=== PATIENT | female | born 1970 | race Caucasian/White ===

== ENCOUNTER 2022-08-06 17:40 | Inpatient (IN) ==
[2022-08-06] MEDS ORDERED: CEFEPIME 2,000 MG/20 ML VIAL IV STA (18:09)
[2022-08-06] MEDS ORDERED: SODIUM CHLORIDE 0.9% 1000ML 500 ML IV SCH (18:15)
[2022-08-06] MEDS ORDERED: SODIUM CHLORIDE 0.9% 1000ML 1,000 ML IV SCH ×2 (18:15→23:34)
[2022-08-06] MEDS: SODIUM CHLORIDE 0.9% 1000ML 1,000 ML IV SCH ×2 (18:21→22:41)
[2022-08-06 19:04] LABS: Alanine Aminotransferase 32 U/L (7-52); Alkaline Phosphatase 60 U/L (34-104); Anion Gap 8 (3-11); Aspartate Aminotransferase 55 U/L (13-39); Bilirubin,Total 0.8 mg/dl (0.2-1.0); Blood Urea Nitrogen 9 mg/dl (6-23); Calcium 8.3 mg/dl (8.6-10.3); Carbon Dioxide 25 mmol/L (21-32); Chloride 102 mmol/L (98-107); Est GFR (Non-African American) 75.1 ml/min; Glucose 80 mg/dl (70-99(Fasting)); Magnesium 1.6 mg/dl (1.7-2.4); Potassium 4.1 mmol/L (3.5-5.1); Sodium 135 mmol/L (136-145); Total Protein 6.5 gm/dl (6.0-8.3); Troponin I High Sensitivity 7.6 pg/ml (0-14)
--- NOTE | 2022-08-06 19:04 | XRay Report ---
XR chest 1V portable HISTORY: 51 years-old Female Sepsis COMPARISON: 12/22/2013 TECHNIQUE: AP view chest FINDINGS: Cardiac silhouette is mildly enlarged. Pulmonary vascular congestion with interstitial coarsening. Il l-defined airspace opacities of the mid to lower lung zones, right greater than left. Bones appear gr ossly intact. IMPRESSION: Mild ill-defined airspace opacities of the mid to lower lung zones, right greater than le ft suspicious for pneumonia. ACT 112: Negative or not required by law. The above report was generated using voice recognition software. It may contain grammatical, syntax o r spelling errors. Electronically signed by: Donte Chandra M.D. 08/06/2022 7:02 PM
[2022-08-06 19:08] LABS: Hematocrit (blood only) 35.8 % (37.0-47.0); Hemoglobin 12.6 g/dl (12.0-16.0); Mean Corpuscular Hemoglobin 34.5 pg (25.0-34.0); Mean Corpuscular Hgb Conc 35.2 g/dL (32.0-36.0); Mean Corpuscular Volume 98.1 fL (80.0-100.0); Mean Platelet Volume 9.9 fL (9.4-12.4); Platelet Count 270 K/uL (130-400); RDW Coefficient of Variation 13.5 % (11.5-14.5); Red Blood Count 3.65 M/uL (4.20-5.40)
[2022-08-06 19:09] LABS: Basophils # (auto) 0.16 K/uL (0-0.2); Basophils % (auto) 1.1 %; Eosinophils # (auto) 0.06 K/uL (0-0.50); Eosinophils % (auto) 0.4 %; Immature Granulocytes # (auto) 0.25 K/uL (0.01-0.20); Immature Granulocytes % (auto) 1.6 %; Lymphocytes # (auto) 9.72 K/uL (1.2-3.4); Lymphocytes % (auto) 63.9 %; Monocytes # (auto) 0.65 K/uL (0.11-0.59); Monocytes % (auto) 4.3 %; Neutrophils # (auto) 4.36 K/uL (1.40-6.50); Neutrophils % (auto) 28.7 %
[2022-08-06 19:10] LABS: Partial Thromboplastin Ratio 0.9; Partial Thromboplastin Time 24.2 Seconds (21.0-31.0); Prothrombin Time 11.3 Seconds (9.0-12.0)
[2022-08-06] MEDS ORDERED: ALBUT/IPRATROP 3MG/0.5MG NEB 3 ML VIAL NEB STA (19:12)
[2022-08-06] MEDS ORDERED: ACETAMINOPHEN 500 MG TAB PO STA (19:12)
--- NOTE | 2022-08-06 19:12 | Emergency Department Note ---
Impression & Plan Bilateral interstitial pneumonia, Hypoxia ED Provider Note INFORMANT: Patient ED PROVIDER(S): Koko Tapia DO CHIEF COMPLAINT: Shortness of breath, cough PLAN: Disposition: Admission Outpatient prescription management: none Discussion with: I spoke with the hospitalist, who will see the patient for admission/observation and further evaluation and consultation. MEDICAL DECISION MAKING: This is a 51-year-old female who presents to the ED with a chief complaint of recent hospitalization in [place] from last Thursday to Thursday for syncope and pneumonia. The patient states that yesterday to and today she started developing pedal edema and worsening shortness of breath. She also reports a nonproductive cough. She was found to have oxygen saturations between 85 and 87% when she came through triage and in the back room. Temperature was 39.4. The patient has some diminished breath sounds bilaterally a chest x-ray shows bilateral lower lobe infiltrates. Heart regular rate and rhythm. No rashes. No obvious distress. CBC shows a white blood cell count of 15. She did recently finish some steroids. Hemoglobin did not show any concerning anemia. Electrolytes were unremarkable. Troponin was negative. Bio fire was negative. The patient was started on IV cefepime. She was given 2 and half liters of normal saline IV. A DuoNeb breathing treatment was administered and some Tylenol p.o. was administered. She will be seen by the hospitalist for further evaluation and care. Triage Nursing notes reviewed. Vital Signs: reviewed Prior /Outside records reviewed: [none] Differential diagnosis: Differential includes viral illness, influenza, streptococcal pharyngitis, meningitis, pneumonia, sinusitis, UTI, pyelonephritis, otitis media. Diagnostics, as interpreted by me: 12 lead ECG: Normal sinus rhythm rate of no ST elation. No PVCs. Normal QTc. Cardiac Monitoring ordered: Sinus rhythm in the 80s and 90s Medical decision rules: [none] Imaging studies: Chest x-ray: Bilateral lower lobe infiltrates Procedures: none. Critical care: none. HPI: See MDM above. PAST MEDICAL HISTORY: See Below PAST SURGICAL HISTORY: See Below SOCIAL HISTORY: See Below HOME MEDICATIONS:See Below ALLERGIES: See Below VITALS: See Below PHYSICAL EXAMINATION: See MDM for positive findings otherwise unremarkable. CONSTITUTIONAL/VITAL SIGNS: Reviewed GENERAL:done as appropriate INTEGUMENTARY: done as appropriate HEAD: done as appropriate EYES: done as appropriate RESPIRATORY: done as appropriate CARDIOVASCULAR:done as appropriate GI/ABDOMEN:done as appropriate EXTREMITIES: done as appropriate NEUROLOGICAL: done as appropriate PSYCHIATRIC:done as appropriate MUSCULOSKELETAL:done as appropriate TRIAGE NURSING DOCUMENTATION REVIEWED. Past Med/Surg History Medical History (Updated 08/06/22 @ 19:16 by Koko Tapia DO) Ovarian cyst Social History Smoking Status: Current every day smoker Feels Safe at Home: Yes Allergies Allergies Allergy/AdvReac Type Severity Reaction Status Date / Time No Known Allergies Allergy Unverified 09/06/18 11:54 Home Meds Home Medications Medication Instructions Recorded Confirmed albuterol sulfate 90 mcg/actuation 2 puff inhalation Q4 PRN Wheezing 09/06/18 08/06/22 aerosol inhaler (Ventolin HFA) chlorthalidone 25 mg tablet 25 mg PO QAM 09/06/18 08/06/22 escitalopram oxalate 10 mg tablet 10 mg PO QAM 09/06/18 08/06/22 losartan 100 mg tablet 100 mg PO QAM 09/06/18 08/06/22 omeprazole 20 mg capsule,delayed 20 mg PO AMPM 09/06/18 08/06/22 release albuterol sulfate 2.5 mg/3 mL 2.5 mg continuous nebulization Q4 08/06/22 08/06/22 (0.083 %) solution for nebulization PRN wheeze fexofenadine 180 mg tablet 180 mg PO DAILY PRN allergies 08/06/22 08/06/22 fluticasone fur. 100 mcg-umeclid 1 inh inhalation QAM 08/06/22 08/06/22 62.5 mcg-vilant 25 mcg inhalat.powder (Trelegy Ellipta) Results & Data (ED) Vital Signs Vital Signs - 24 hr 08/06/22 17:44 08/06/22 18:05 08/06/22 18:09 Temperature 39.4 C H Temperature Source Oral Pulse Rate 95 H 98 H Respiratory Rate 20 Respiratory Effort / Characteristics Non-Labored Spontaneous Respiratory Depth Normal Respiratory Pattern Regular Blood Pressure 136/82 Blood Pressure Mean 100 Pulse Oximetry 87 L Oxygen Delivery Method Room Air Nasal Cannula Sepsis Recent Fever Within 48 Hours No Sepsis New/Unexplained Change in Mental Status N/A Sepsis Action Taken by Nursing No Action Required 08/06/22 18:09 Temperature Temperature Source Pulse Rate Respiratory Rate 14 Respiratory Effort / Characteristics Respiratory Depth Respiratory Pattern Blood Pressure Blood Pressure Mean Pulse Oximetry Oxygen Delivery Method Sepsis Recent Fever Within 48 Hours Sepsis New/Unexplained Change in Mental Status Sepsis Action Taken by Nursing Laboratory Data 08/06/22 18:06 08/06/22 18:06 Lab Results 08/06/22 08/06/22 08/06/22 Range/Units 18:06 18:06 18:06 WBC 15.20 H (4.8-10.8) K/ul RBC 3.65 L (4.20-5.40) M/uL Hgb 12.6 (12.0-16.0) g/dl Hct 35.8 L (37.0-47.0) % MCV 98.1 (80.0-100.0) fL MCH 34.5 H (25.0-34.0) pg MCHC 35.2 (32.0-36.0) g/dL RDW Std Deviation 47.0 H (36.4-46.3) fL RDW Coeff of Puja 13.5 (11.5-14.5) % Plt Count 270 (130-400) K/uL MPV 9.9 (9.4-12.4) fL Immature Gran % (Auto) 1.6 % Neut % (Auto) 28.7 % Lymph % (Auto) 63.9 % [place] % (Auto) 4.3 % Eos % (Auto) 0.4 % Baso % (Auto) 1.1 % Neut # (Auto) 4.36 (1.40-6.50) K/uL Lymph # (Auto) 9.72 H (1.2-3.4) K/uL [place] # (Auto) 0.65 H (0.11-0.59) K/uL Eos # (Auto) 0.06 (0-0.50) K/uL Baso # (Auto) 0.16 (0-0.2) K/uL Immature Gran # (Auto) 0.25 H (0.01-0.20) K/uL PT (9.0-12.0) Seconds INR (0.9-1.1) APTT (21.0-31.0) Seconds PTT Ratio Sodium 135 L (136-145) mmol/L Potassium 4.1 (3.5-5.1) mmol/L Chloride 102 (98-107) mmol/L Carbon Dioxide 25 (21-32) mmol/L Anion Gap 8 (3-11) BUN 9 (6-23) mg/dl Creatinine 0.90 (0.6-1.2) mg/dl Est Cr Clr Drug Dosing 82.0 ml/min Est GFR ( Amer) 87.0 ml/min Est GFR (Non-Af Amer) 75.1 ml/min BUN/Creatinine Ratio 10.0 (10-20) Glucose 80 (70-99(Fasting)) mg/dl Lactate 1.9 (0.4-2.0) mmol/L Calcium 8.3 L (8.6-10.3) mg/dl Magnesium 1.6 L (1.7-2.4) mg/dl Total Bilirubin 0.8 (0.2-1.0) mg/dl Direct Bilirubin TNP AST 55 H (13-39) U/L ALT 32 (7-52) U/L Alkaline Phosphatase 60 (34-104) U/L Troponin I High Sens 7.6 (0-14) pg/ml Total Protein 6.5 (6.0-8.3) gm/dl Albumin 3.0 L (3.4-5.0) gm/dl Procalcitonin (0-0.5) ng/ml Adenovirus (PCR) (NotDetected) B. pertussis DNA (PCR) (NotDetected) B.parapertussis DNA PCR (NotDetected) C. pneumoniae DNA (PCR) (NotDetected) Coronavirus OC43 (PCR) (NotDetected) Coronavirus HKU1 (PCR) (NotDetected) Coronavirus 229E (PCR) (NotDetected) SARS-CoV-2 (PCR) (NotDetected) Coronavirus NL63 (PCR) (NotDetected) Human Metapneumovir PCR (NotDetected) Influenza Type A (PCR) (NotDetected) Influenza Type B (PCR) (NotDetected) M. pneumoniae (PCR) (NotDetected) Parainfluenza 1 (PCR) (NotDetected) Parainfluenza 2 (PCR) (NotDetected) Parainfluenza 3 (PCR) (NotDetected) Parainfluenza 4 (PCR) (NotDetected) RSV (PCR) (NotDetected) Entero/Rhino (PCR) (NotDetected) 08/06/22 08/06/22 08/06/22 Range/Units 18:06 18:06 18:06 WBC (4.8-10.8) K/ul RBC (4.20-5.40) M/uL Hgb (12.0-16.0) g/dl Hct (37.0-47.0) % MCV (80.0-100.0) fL MCH (25.0-34.0) pg MCHC (32.0-36.0) g/dL RDW Std Deviation (36.4-46.3) fL RDW Coeff of Puja (11.5-14.5) % Plt Count (130-400) K/uL MPV (9.4-12.4) fL Immature Gran % (Auto) % Neut % (Auto) % Lymph % (Auto) % [place] % (Auto) % Eos % (Auto) % Baso % (Auto) % Neut # (Auto) (1.40-6.50) K/uL Lymph # (Auto) (1.2-3.4) K/uL [place] # (Auto) (0.11-0.59) K/uL Eos # (Auto) (0-0.50) K/uL Baso # (Auto) (0-0.2) K/uL Immature Gran # (Auto) (0.01-0.20) K/uL PT 11.3 (9.0-12.0) Seconds INR 1.0 (0.9-1.1) APTT 24.2 (21.0-31.0) Seconds PTT Ratio 0.9 Sodium (136-145) mmol/L Potassium (3.5-5.1) mmol/L Chloride (98-107) mmol/L Carbon Dioxide (21-32) mmol/L Anion Gap (3-11) BUN (6-23) mg/dl Creatinine (0.6-1.2) mg/dl Est Cr Clr Drug Dosing ml/min Est GFR ( Amer) ml/min Est GFR (Non-Af Amer) ml/min BUN/Creatinine Ratio (10-20) Glucose (70-99(Fasting)) mg/dl Lactate (0.4-2.0) mmol/L Calcium (8.6-10.3) mg/dl Magnesium (1.7-2.4) mg/dl Total Bilirubin (0.2-1.0) mg/dl Direct Bilirubin 0.1 AST (13-39) U/L ALT (7-52) U/L Alkaline Phosphatase (34-104) U/L Troponin I High Sens (0-14) pg/ml Total Protein (6.0-8.3) gm/dl Albumin (3.4-5.0) gm/dl Procalcitonin 0.16 (0-0.5) ng/ml Adenovirus (PCR) (NotDetected) B. pertussis DNA (PCR) (NotDetected) B.parapertussis DNA PCR (NotDetected) C. pneumoniae DNA (PCR) (NotDetected) Coronavirus OC43 (PCR) (NotDetected) Coronavirus HKU1 (PCR) (NotDetected) Coronavirus 229E (PCR) (NotDetected) SARS-CoV-2 (PCR) (NotDetected) Coronavirus NL63 (PCR) (NotDetected) Human Metapneumovir PCR (NotDetected) Influenza Type A (PCR) (NotDetected) Influenza Type B (PCR) (NotDetected) M. pneumoniae (PCR) (NotDetected) Parainfluenza 1 (PCR) (NotDetected) Parainfluenza 2 (PCR) (NotDetected) Parainfluenza 3 (PCR) (NotDetected) Parainfluenza 4 (PCR) (NotDetected) RSV (PCR) (NotDetected) Entero/Rhino (PCR) (NotDetected) 08/06/22 Range/Units 18:34 WBC (4.8-10.8) K/ul RBC (4.20-5.40) M/uL Hgb (12.0-16.0) g/dl Hct (37.0-47.0) % MCV (80.0-100.0) fL MCH (25.0-34.0) pg MCHC (32.0-36.0) g/dL RDW Std Deviation (36.4-46.3) fL RDW Coeff of Puja (11.5-14.5) % Plt Count (130-400) K/uL MPV (9.4-12.4) fL Immature Gran % (Auto) % Neut % (Auto) % Lymph % (Auto) % [place] % (Auto) % Eos % (Auto) % Baso % (Auto) % Neut # (Auto) (1.40-6.50) K/uL Lymph # (Auto) (1.2-3.4) K/uL [place] # (Auto) (0.11-0.59) K/uL Eos # (Auto) (0-0.50) K/uL Baso # (Auto) (0-0.2) K/uL Immature Gran # (Auto) (0.01-0.20) K/uL PT (9.0-12.0) Seconds INR (0.9-1.1) APTT (21.0-31.0) Seconds PTT Ratio Sodium (136-145) mmol/L Potassium (3.5-5.1) mmol/L Chloride (98-107) mmol/L Carbon Dioxide (21-32) mmol/L Anion Gap (3-11) BUN (6-23) mg/dl Creatinine (0.6-1.2) mg/dl Est Cr Clr Drug Dosing ml/min Est GFR ( Amer) ml/min Est GFR (Non-Af Amer) ml/min BUN/Creatinine Ratio (10-20) Glucose (70-99(Fasting)) mg/dl Lactate (0.4-2.0) mmol/L Calcium (8.6-10.3) mg/dl Magnesium (1.7-2.4) mg/dl Total Bilirubin (0.2-1.0) mg/dl Direct Bilirubin AST (13-39) U/L ALT (7-52) U/L Alkaline Phosphatase (34-104) U/L Troponin I High Sens (0-14) pg/ml Total Protein (6.0-8.3) gm/dl Albumin (3.4-5.0) gm/dl Procalcitonin (0-0.5) ng/ml Adenovirus (PCR) Not Detected (NotDetected) B. pertussis DNA (PCR) Not Detected (NotDetected) B.parapertussis DNA PCR Not Detected (NotDetected) C. pneumoniae DNA (PCR) Not Detected (NotDetected) Coronavirus OC43 (PCR) Not Detected (NotDetected) Coronavirus HKU1 (PCR) Not Detected (NotDetected) Coronavirus 229E (PCR) Not Detected (NotDetected) SARS-CoV-2 (PCR) Not Detected (NotDetected) Coronavirus NL63 (PCR) Not Detected (NotDetected) Human Metapneumovir PCR Not Detected (NotDetected) Influenza Type A (PCR) Not Detected (NotDetected) Influenza Type B (PCR) Not Detected (NotDetected) M. pneumoniae (PCR) Not Detected (NotDetected) Parainfluenza 1 (PCR) Not Detected (NotDetected) Parainfluenza 2 (PCR) Not Detected (NotDetected) Parainfluenza 3 (PCR) Not Detected (NotDetected) Parainfluenza 4 (PCR) Not Detected (NotDetected) RSV (PCR) Not Detected (NotDetected) Entero/Rhino (PCR) Not Detected (NotDetected) Administered Medications Sodium Chloride (Nss 1000ml) 1,000 mls @ 999 mls/hr IV .Q1H1M EDENILSON Stop: 08/06/22 20:15 Last Admin: 08/06/22 18:21 Dose: 999 mls/hr Documented By: ARS Discontinued Medications Acetaminophen (Acetaminophen 500 Mg Tab) 500 mg PO NOW STA Stop: 08/06/22 19:13 Last Admin: 08/06/22 19:30 Dose: 500 mg Documented By: ARS Albuterol (Albut/Ipratrop 3mg/0.5mg Neb 3 Ml Vial) 3 ml NEB NOW STA; Protocol Stop: 08/06/22 19:13 Last Admin: 08/06/22 19:29 Dose: 3 ml Documented By: ARS Cefepime HCl (Maxipime) 2,000 mg in 20 mls @ 5 mls/min IV NOW STA; Protocol Stop: 08/06/22 18:12 Last Admin: 08/06/22 19:00 Dose: 5 mls/min Documented By: JULIA Sodium Chloride (Nss 1000ml) 1,000 mls @ 999 mls/hr IV .Q1H1M EDENILSON Stop: 08/06/22 19:15 Last Admin: 08/06/22 18:21 Dose: 999 mls/hr Documented By: JULIA Sodium Chloride (Nss 1000ml) 500 mls @ 999 mls/hr IV .Q31M EDENILSON Stop: 08/06/22 18:45 Last Admin: 08/06/22 18:21 Dose: 999 mls/hr Documented By: JULIA Ioversol (Optiray 320 500ml) 109 ml IV ONCE ONE Stop: 08/06/22 19:51 Last Admin: 08/06/22 19:50 Dose: 109 ml Documented By: NO Imaging Data Radiologist's Impression: Chest X-Ray 08/06/22 18:09 XR chest 1V portable HISTORY: 51 years-old Female Sepsis COMPARISON: 12/22/2013 TECHNIQUE: AP view chest FINDINGS: Cardiac silhouette is mildly enlarged. Pulmonary vascular congestion with interstitial coarsening. Ill-defined airspace opacities of the mid to lower lung zones, right greater than left. Bones appear grossly intact. IMPRESSION: Mild ill-defined airspace opacities of the mid to lower lung zones, right greater than left suspicious for pneumonia. ACT 112: Negative or not required by law. The above report was generated using voice recognition software. It may contain grammatical, syntax or spelling errors. Electronically signed by: Donte Chandra M.D. 08/06/2022 7:02 PM Discharge Plan Visit Data Chief Complaint: Hypotension Stated Complaint: EPISODE OF LOW BLOOD PRESSURE ED Provider: Koko Tapia Discharge Problem: Bilateral interstitial pneumonia, Hypoxia Forms Stand Alone Forms: My [facility] Prescriptions Prescriptions: No Action chlorthalidone 25 mg tablet 25 mg PO QAM omeprazole 20 mg capsule,delayed release(DR/EC) 20 mg PO AMPM albuterol sulfate [Ventolin HFA] 90 mcg/actuation HFA aerosol inhaler 2 puff inhalation Q4 PRN (Reason: Wheezing) losartan 100 mg tablet 100 mg PO QAM escitalopram oxalate 10 mg tablet 10 mg PO QAM fexofenadine 180 mg Tablet 180 mg PO DAILY PRN (Reason: allergies) Trelegy Ellipta 100-62.5-25 mcg blister with device 1 inh INHALATION QAM albuterol sulfate 2.5 mg /3 mL (0.083 %) solution for nebulization 2.5 mg continuous nebulization Q4 PRN (Reason: wheeze) Referrals Referrals: Lalo Salazar MD [Primary Care Provider] -
[2022-08-06 19:40] LABS: Adenovirus PCR Not Detected (NotDetected); Bordetella parapertussis PCR Not Detected (NotDetected); Bordetella pertussis PCR Not Detected (NotDetected); Chlamydia pneumoniae PCR Not Detected (NotDetected); Coronavirus 229E PCR Not Detected (NotDetected); Coronavirus CoV-2 (COVID19)PCR Not Detected (NotDetected); Coronavirus HKU1 PCR Not Detected (NotDetected); Coronavirus NL63 PCR Not Detected (NotDetected); Coronavirus OC43PCR Not Detected (NotDetected); Human Metapneumovirus PCR Not Detected (NotDetected); Influenza A PCR Not Detected (NotDetected); Influenza B PCR Not Detected (NotDetected); Mycoplasma pneumoniae PCR Not Detected (NotDetected); Parainfluenza Virus 1 PCR Not Detected (NotDetected); Parainfluenza Virus 2 PCR Not Detected (NotDetected); Parainfluenza Virus 3 PCR Not Detected (NotDetected); Parainfluenza Virus 4 PCR Not Detected (NotDetected); Respiratory Syncytial VirusPCR Not Detected (NotDetected); Rhinovirus/Enterovirus PCR Not Detected (NotDetected)
[2022-08-06] MEDS ORDERED: OPTIRAY 320 500ml IV ONE (19:50)
--- NOTE | 2022-08-06 20:06 | CT Scan Report ---
Exam(s): CTA CHEST EXAM: CT Angiography Chest With Intravenous Contrast CLINICAL HISTORY: Reason for exam: sob, r/o pe. TECHNIQUE: Axial computed tomographic angiography images of the chest with intravenous contrast. CTDI is 38 mGy and DLP is 923.37 mGy-cm. Automated exposure control was utilized for the study. A dose lowering technique was utilized adhering to the principles of ALARA. MIP reconstructed images were created and reviewed. COMPARISON: No relevant prior studies available. FINDINGS: Pulmonary arteries: Unremarkable. No pulmonary embolus. Aorta: No acute findings. No thoracic aortic aneurysm. Lungs: See below. Pleural space: Small right and tiny left pleural effusions with associated compressive atelectasis of both lower lobes. No pneumothorax. Heart: Unremarkable. No cardiomegaly. No significant pericardial effusion. No evidence of RV dysfunction. Mediastinum: 2.2 x 2.8 cm right hilar lymph node with diffuse patchy groundglass opacity scattered throughout the lungs bilaterally with a particular upper lobe predominance. Bones/joints: No acute fracture. No dislocation. Soft tissues: Unremarkable. Lymph nodes: See above. Liver: Hepatomegaly. IMPRESSION: 1. No pulmonary embolus 2. Diffuse groundglass opacities within the lungs bilaterally. Findings are consistent with multifocal pneumonia 3. Right hilar lymphadenopathy likely reactive in nature 4. Hepatomegaly Electronically signed by: Elian Higgins MD 08/06/22 20:05 PM
[2022-08-06] MEDS ORDERED: FEXOFENADINE HCL 180 MG TAB PO PRN (23:34)
[2022-08-06] MEDS ORDERED: LEVALBUTEROL 1.25 MG/3 ML NEB NEB PRN (23:34)
[2022-08-06] MEDS ORDERED: POLYETHYLENE (MIRALAX) 17 GM PACK PO PRN (23:34)
[2022-08-06] MEDS ORDERED: methylPREDNISolone 125 MG/2 ML VIAL IV STA (23:34)
[2022-08-06] MEDS ORDERED: ALBUTEROL HFA 8 GM INHALER INH PRN (23:34)
[2022-08-06] MEDS ORDERED: methylPREDNISolone 60 MG in SYRINGE 0 ML IV STA (23:41)
[2022-08-07] MEDS: LEVALBUTEROL 1.25 MG/3 ML NEB NEB SCH ×4 (00:04→19:19)
[2022-08-07] MEDS: IPRATROPIUM BROMIDE NEB SOLN 0.02% 2.5 ML VIAL INH SCH ×4 (00:04→19:19)
--- NOTE | 2022-08-07 00:09 | History and Physical Report ---
DATE OF ADMISSION: 08/06/2022. CHIEF COMPLAINT: Shortness of breath, cough. HISTORY OF PRESENT ILLNESS: This is a 51-year-old female with past medical history significant for asthma, hypertension, GERD, anxiety and depression, who presents with shortness of breath and cough. The patient says last Thursday she was feeling not good and she was sick for a couple of weeks prior to that and last Thursday at work she checked her blood pressure, systolic blood pressure was in 60s, so she came home to go to hospital. At home, she passed out for a minute. Her brother and her friend helped her and took her to the [facility] where they found she has pneumonia and she was treated with antibiotics and steroids and says that she was discharged last Thursday on a course of azithromycin and steroids. She finished her steroids yesterday, today again she was feeling the shortness of breath and the cough was not getting better and also since last Thursday she developed lower extremity edema and today and checked her blood pressure, it was again low and that is the reason she came to the hospital here. Currently, alert and oriented, has some headache from coughing, also felt dizziness. Denies any blurred visions, no earache, no runny nose, no sore throat. Does not bring any phlegm. Has some chest discomfort. She thinks this is very mild and is more with coughing.She was 87% on room air and requiring oxygen in the ER.Says when she coughs a lot, she feels nauseous. She did not eat much for the last 2 days. No abdominal pain. She has some diarrhea. Her stools are reddish in color, but it seems it is the color of the antibiotic. She has got normal bladder movements. No hematuria, no burning micturition. ALLERGIES: No known drug allergies. PAST MEDICAL HISTORY: As mentioned above. PAST SURGICAL HISTORY: Breast biopsy, left; ; EGDs. MEDICATIONS: The patient is on albuterol nebulization q. 4 hours p.r.n., albuterol 2 puffs q. 4 hours p.r.n., chlorthalidone 25 mg p.o. a.m., Lexapro 10 mg p.o. a.m., fexofenadine 180 mg p.o. daily p.r.n., Trelegy Ellipta 1 inhalation daily q.a.m., losartan 100 mg p.o. daily, omeprazole 20 mg p.o. b.i.d. FAMILY HISTORY: Significant for maternal grandmother had breast cancer; father has heart disorder, lung disorder. SOCIAL HISTORY: Smokes six cigarettes every day. Alcohol occasionally. No drug use. REVIEW OF SYSTEMS: As per HPI. Rest of the review of systems is negative. PHYSICAL EXAMINATION: GENERAL: The patient is obese, not in acute distress. VITAL SIGNS: Temperature T-max 39.4, pulse 98, respiratory rate 14, blood pressure 136/82, oxygen 87% on room air, 92% on 4 liters. HEENT: Pupils equal, round, and reactive to light. Oral mucosa moist. NECK: No JVD, no neck masses. CARDIOVASCULAR: S1 and S2 heard, regular rate and rhythm. No murmur, no gallop. RESPIRATORY SYSTEM: Normal AP diameter. No accessory muscle use. Mild bilateral rhonchi. No wheezing. ABDOMEN: Soft, bowel sounds present, nontender, no distention. CENTRAL NERVOUS SYSTEM: Alert and oriented. Speech is clear. No facial droop. Obeys simple commands. Moves extremities. EXTREMITIES: Lower extremity pedal edema present, no erythema seen. LABORATORY DATA: WBC 15.2, hemoglobin 12.6, hematocrit 35.8, platelets 270. PT 11.3, INR 1, APTT 24.2. Sodium 135, potassium 4.1, chloride 102, bicarbonate 25, BUN 9, creatinine 0.9, serum glucose 80, lactate 1.9, calcium 8.3, magnesium 1.6, total bilirubin 0.8, direct bilirubin 0.1, AST 55, ALT 32, alkaline phosphatase 60. Troponin I high sensitivity 7.6. Procalcitonin 0.16. Respiratory BioFire negative. IMAGING DATA: Chest x-ray: Mild ill-defined airspace opacities in the mid to lower lung zones, right greater than left, suspicious for pneumonia. CTA chest, no pulmonary embolus, diffuse ground-glass opacities within the lungs bilaterally. Findings are consistent with multifocal pneumonia, right hilar lymphadenopathy, likely reactive in nature, hepatomegaly. EKG: Normal sinus rhythm, rate of 91, nonspecific T-wave abnormalities. No acute ST changes seen. ASSESSMENT AND PLAN: This is a 51-year-old female who presents with shortness of breath, hypoxia, recently diagnosed pneumonia. 1. Shortness of breath, hypoxia: Most likely secondary to multifocal pneumonia showing on ct scan, respiratory BioFire negative. Recently in [facility] last Thursday and was discharged on Thursday. On discharge, she was placed on azithromycin. Currently she has leukocytosis, mostly from recent steroid use. ER gave cefepime.Will empirically place on Zosyn and doxycycline for now. Follow the cultures. Follow the response. Closely monitor in the tele floor. Her blood pressure seems okay now. 2. Possible asthma exacerbation from above: Placed on nebs around the clock and p.r.n. and IV Solu-Medrol. Antibiotics as above.Closely monitor. 3. Lower extremity edema: Most likely from recent admission, possibly from fluids and possibly from steroids. Will check lower extremity Doppler and also follow echocardiogram. Currently also getting fluids. Will monitor. 4. Chest discomfort: This is mostly from the coughing, but initial troponin is negative. Follow serial enzymes and echocardiogram. If any concern, will consult cardiology. Monitor in the tele floor and follow echocardiogram. 5. History of hypertension: Will hold the chlorthalidone and losartan for now. Restart when the blood pressure gets elevated. 6. History of depression and anxiety: Continue her Lexapro. 7. Tobacco abuse: Smokes six cigarettes daily. Needs counseling. 8. Gastroesophageal reflux disease: Continue omeprazole. 9. Deep venous thrombosis prophylaxis: Lovenox. DISPOSITION: Closely monitor in the tele floor. Level 1 full code. Expect to discharge home and follow with family doctor. Job ID: [id number] [facility]
[2022-08-07] MEDS: MAGNESIUM SULFATE / D5W 1 GM/100 ML BAG IV SCH ×2 (00:19→02:01)
[2022-08-07] MEDS: PIPERACILLIN/TAZOBACTAM 4.5 GM in DEXTROSE 5% 100 ML IV SCH ×4 (00:20→23:40)
[2022-08-07] MEDS: DOXYCYCLINE HYCLATE 100 MG in DEXTROSE 5% 100 ML IV SCH ×3 (00:20→23:40)
[2022-08-07] MEDS: PANTOprazole 40 MG TAB PO SCH ×3 (00:21→19:59)
[2022-08-07] MEDS ORDERED: XOPENEX/ATROVENT 1.25mg/0.5MG NEB COMBO NEB SCH (01:00)
[2022-08-07 03:53] LABS: Appearance Urine Clear (Clear); Bacteria Urine Automated Negative (Negative); Bilirubin Urine Negative (Negative); Blood Urine Negative (Negative); Color Urine Yellow; Glucose Urine UA Negative (Negative); Ketones Urine Negative (Negative); Leukocyte Esterase Urine Negative (Negative); Nitrite Urine Negative (Negative); Protein Urine 1+ (Negative); RBC Urine Automated 0-4 /hpf (0-4); Specific Gravity Urine 1.035 (1.000-1.030); Urobilinogen Urine Negative (Negative); pH Urine 5.5 (4.5-7.5)
[2022-08-07 06:26] LABS: Hematocrit (blood only) 30.4 % (37.0-47.0); Hemoglobin 10.6 g/dl (12.0-16.0); Mean Corpuscular Hemoglobin 34.2 pg (25.0-34.0); Mean Corpuscular Hgb Conc 34.9 g/dL (32.0-36.0); Mean Corpuscular Volume 98.1 fL (80.0-100.0); Mean Platelet Volume 9.6 fL (9.4-12.4); Platelet Count 263 K/uL (130-400); RDW Coefficient of Variation 13.9 % (11.5-14.5); RDW Standard Deviation 47.8 fL (36.4-46.3); White Blood Count 9.06 K/ul (4.8-10.8)
--- NOTE | 2022-08-07 06:42 | Ultrasound Report ---
BILATERAL LOWER EXTREMITY VENOUS DOPPLER CLINICAL HISTORY: b/l lower ext edema. dvt? COMPARISON STUDY: No previous studies for comparison. TECHNIQUE: Sonography of the deep venous system of the bilateral lower extremities was performed. Co mpression and augmentation were evaluated. FINDINGS: The bilateral common femoral, superficial femoral and popliteal veins were compressible. A ugmentation was normal. Flow was shown within the deep calf vessels. IMPRESSION: No evidence of deep venous thrombus within the bilateral lower extremities. ACT 112: Negative or not required by law. Electronically signed by: Leopoldo Eugene M.D. 08/07/2022 6:41 AM
[2022-08-07 07:11] LABS: Lyme Ab IgG w/WB Rflx Negative (Negative)
[2022-08-07 07:14] LABS: Lyme Ab IgM w/WB Rflx Positive (Negative)
[2022-08-07 07:23] LABS: ALC (manual) 2.45 K/uL (1.2-3.4); ANC (manual) 5.98 K/uL (1.4-6.5); Calcium 7.4 mg/dl (8.6-10.3); Lymphocytes # (manual) 0.36 K/uL (1.2-3.4); Lymphocytes % (manual) 4 %; Monocytes # (manual) 0.63 K/uL (0.11-0.59); Monocytes % (manual) 7 %; Neutrophils # (manual) 5.98 K/uL (1.40-6.50); Neutrophils % (manual) 66 %; Reactive Lymphocytes # (manual) 2.08 K/uL; Reactive Lymphocytes % (manual) 23 %
[2022-08-07 07:28] LABS: BUN Creatinine Ratio 12.5 (10-20); Creatinine Clr Calc Pharmacy 93.4 ml/min; Est GFR (African American) 100.3 ml/min; Est GFR (Non-African American) 86.6 ml/min
[2022-08-07] MEDS: FLUTICASONE FUROATE 100MCG 14 PUFFS/INHALER INH SCH (08:01)
[2022-08-07] MEDS: methylPREDNISolone 40 MG in SYRINGE 0 ML IV SCH ×2 (08:01→19:59)
[2022-08-07] MEDS: UMECLIDINIUM/VILANTEROL 62.5/25MCG 7 PUFFS/INHALER INH SCH (08:01)
[2022-08-07] MEDS: ENOXAPARIN INJ 40 MG/0.4 ML SYR SQ SCH (08:02)
[2022-08-07] MEDS: ESCITALOPRAM OXALATE 10 MG TAB PO SCH (08:02)
[2022-08-07] MEDS ORDERED: NON-FORMULARY MEDICATION (Fluticasone-Umeclidin-Vilanter [Trelegy Ellipta] 100-62.5-25 mcg INH SCH (09:00)
[2022-08-07] MEDS ORDERED: BENZONATATE 100 MG CAPSULE PO PRN (10:46)
[2022-08-07] MEDS: guaiFENesin 600 MG TABCR PO SCH ×2 (11:19→20:02)
--- NOTE | 2022-08-07 11:49 | Hospitalist Progress Note ---
Date of Service August 07, 2022 Assessment & Plan (1) Multifocal pneumonia: (2) Acute respiratory failure with hypoxia: Plan: Patient reported symptoms started after visiting grandchild mid June with cough, SOB, dizziness, occasional low BP, subjective fever and chills Was recently admitted at [facility] and managed for pneumonia and discharged on azithromycin and steroid. However, presented here due to worsening symptoms. CTA chest did not show PE but noted multifocal pneumonia, hepatomegaly. Had leukocytosis of 15 on presentation Patient did meet SIRS criteria with leukocytosis and RR >20. Hence Sepsis due to multifocal pneumonia Lyme test is + for IgM Ab. others pending Blood cultures in lab Will continue zosyn and doxycycline for now Reported leg edema was in the past few days from recent stay at [place]. May be related to IVF during that hospital stay TTE noted EF 65-70%, mod conc LVH, no significant valvular disease, normal RV size and function, normal atrial Stop IVF for now since patient is tolerating po well and monitor Antitussives ordered Wean oxygen as tolerated. If no clinical improvement, consult Pulm Continue nebs and steroid for today (3) Hypertension: Plan: SBP running 90-100s. Hold all antihypertensives for now Continue home lexapro Continue omeprazole DVT ppx- lovenox I spent a total of 55 minutes coordinating, documenting and providing care for this patient excluding time spent in performance of separately billed services Admission and Anticipated Discharge Date Admission Date: August 06, 2022 Subjective Patient seen and examined Reports persistent cough, mostly dry and shortness of breath Reported cough is associated with mid back pain which is mildly improved No dizziness at this time No fever today. No chills, nausea, vomiting, abd pain, diarrhea, dysuria, freq, urgency Reported some leg swelling. Physical Exam Constitutional: + well hydrated and + obese; no acute distress Eyes: PERRL, conjunctivae normal, anicteric sclerae ENMT: external ear and nose normal, oropharynx normal Respiratory: +cough. Coarse breath sounds with scattered crackles Cardiovascular: Rate/Rhythm: regular rate and regular rhythm S1 S2 Gastrointestinal (Abdomen): normal bowel sounds, soft, nontender, no hepatosplenomegaly Musculoskeletal: Trace pedal edema Neurologic: PERRL, EOMI, accommodation nl, no face palsy, no dysarthria Psychiatric: A+Ox3, euthymic affect Results & Data Results & Data Vital Signs (Past 12 Hours) Vital Signs Temp Pulse Pulse Pulse Resp BP BP 08/07/22 11:13 36.6 C 80 20 99/69 L 08/07/22 08:00 08/07/22 06:24 79 08/07/22 07:53 36.8 C 69 20 91/54 L 08/07/22 07:11 65 16 08/07/22 03:57 37.0 C 70 18 95/58 L 08/07/22 00:00 88 08/07/22 00:04 73 18 08/06/22 23:48 08/06/22 23:48 36.6 C 85 22 111/66 Pulse Ox O2 Del Method O2 Flow Rate 08/07/22 11:13 97 Nasal Cannula 4 08/07/22 08:00 Nasal Cannula 4 08/07/22 06:24 08/07/22 07:53 92 Nasal Cannula 4 08/07/22 07:11 95 Nasal Cannula 2 08/07/22 03:57 91 Nasal Cannula 08/07/22 00:00 08/07/22 00:04 97 Nasal Cannula 4 08/06/22 23:48 Nasal Cannula 4 08/06/22 23:48 93 Nasal Cannula 4 Laboratory Results Abnormal lab results 08/06/22 08/06/22 08/07/22 Range/Units 18:06 18:06 03:43 WBC 15.20 H (4.8-10.8) K/ul RBC 3.65 L (4.20-5.40) M/uL Hgb (12.0-16.0) g/dl Hct 35.8 L (37.0-47.0) % MCH 34.5 H (25.0-34.0) pg RDW Std Deviation 47.0 H (36.4-46.3) fL Lymph # (Auto) 9.72 H (1.2-3.4) K/uL Wood # (Auto) 0.65 H (0.11-0.59) K/uL Immature Gran # (Auto) 0.25 H (0.01-0.20) K/uL Lymphocytes # (Manual) (1.2-3.4) K/uL Monocytes # (Manual) (0.11-0.59) K/uL Sodium 135 L (136-145) mmol/L Glucose (70-99(Fasting)) mg/dl Calcium 8.3 L (8.6-10.3) mg/dl Magnesium 1.6 L (1.7-2.4) mg/dl AST 55 H (13-39) U/L Albumin 3.0 L (3.4-5.0) gm/dl Ur Specific Moffat 1.035 H (1.000-1.030) Urine Protein 1+ H (Negative) U Epithel Cells (Auto) 10-20 H (0-5) /lpf Lyme Disease IgM Ab (Negative) 08/07/22 08/07/22 08/07/22 Range/Units 05:32 05:32 05:32 WBC (4.8-10.8) K/ul RBC 3.10 L (4.20-5.40) M/uL Hgb 10.6 L (12.0-16.0) g/dl Hct 30.4 L (37.0-47.0) % MCH 34.2 H (25.0-34.0) pg RDW Std Deviation 47.8 H (36.4-46.3) fL Lymph # (Auto) (1.2-3.4) K/uL Wood # (Auto) (0.11-0.59) K/uL Immature Gran # (Auto) (0.01-0.20) K/uL Lymphocytes # (Manual) 0.36 L (1.2-3.4) K/uL Monocytes # (Manual) 0.63 H (0.11-0.59) K/uL Sodium (136-145) mmol/L Glucose 127 H (70-99(Fasting)) mg/dl Calcium 7.4 L (8.6-10.3) mg/dl Magnesium (1.7-2.4) mg/dl AST (13-39) U/L Albumin (3.4-5.0) gm/dl Ur Specific Moffat (1.000-1.030) Urine Protein (Negative) U Epithel Cells (Auto) (0-5) /lpf Lyme Disease IgM Ab Positive A (Negative)
[2022-08-08] MEDS: MELATONIN 3 MG TAB PO PRN (00:41)
[2022-08-08] MEDS: IPRATROPIUM BROMIDE NEB SOLN 0.02% 2.5 ML VIAL INH SCH ×3 (01:35→12:51)
[2022-08-08] MEDS: LEVALBUTEROL 1.25 MG/3 ML NEB NEB SCH ×3 (01:35→12:51)
[2022-08-08] MEDS: guaiFENesin 600 MG TABCR PO SCH ×2 (08:02→20:05)
[2022-08-08] MEDS: UMECLIDINIUM/VILANTEROL 62.5/25MCG 7 PUFFS/INHALER INH SCH (08:02)
[2022-08-08] MEDS: ENOXAPARIN INJ 40 MG/0.4 ML SYR SQ SCH (08:02)
[2022-08-08] MEDS: FLUTICASONE FUROATE 100MCG 14 PUFFS/INHALER INH SCH (08:02)
[2022-08-08] MEDS: methylPREDNISolone 40 MG in SYRINGE 0 ML IV SCH (08:02)
[2022-08-08] MEDS: PANTOprazole 40 MG TAB PO SCH ×2 (08:02→20:05)
[2022-08-08] MEDS: ESCITALOPRAM OXALATE 10 MG TAB PO SCH (08:02)
[2022-08-08 08:31] LABS: Hematocrit (blood only) 31.2 % (37.0-47.0); Hemoglobin 10.9 g/dl (12.0-16.0); Mean Corpuscular Hemoglobin 33.2 pg (25.0-34.0); Mean Corpuscular Hgb Conc 34.9 g/dL (32.0-36.0); Mean Corpuscular Volume 95.1 fL (80.0-100.0); Mean Platelet Volume 9.6 fL (9.4-12.4); Platelet Count 243 K/uL (130-400); RDW Coefficient of Variation 13.3 % (11.5-14.5); RDW Standard Deviation 45.1 fL (36.4-46.3); Red Blood Count 3.28 M/uL (4.20-5.40); White Blood Count 8.41 K/ul (4.8-10.8)
[2022-08-08] MEDS: PIPERACILLIN/TAZOBACTAM 4.5 GM in DEXTROSE 5% 100 ML IV SCH ×2 (08:56→16:10)
[2022-08-08 09:03] LABS: Albumin Globulin Ratio 0.8 (0.9-2); Albumin Level 2.7 gm/dl (3.4-5.0); BUN Creatinine Ratio 17.7 (10-20); Bilirubin,Total 0.5 mg/dl (0.2-1.0); Calcium 8.3 mg/dl (8.6-10.3); Est GFR (African American) 122.7 ml/min; Est GFR (Non-African American) 105.9 ml/min; Globulin 3.2 gm/dl (2.5-4.0); Magnesium 1.9 mg/dl (1.7-2.4); Potassium 3.7 mmol/L (3.5-5.1); Total Protein 5.9 gm/dl (6.0-8.3)
[2022-08-08] MEDS: DOXYCYCLINE HYCLATE 100 MG in DEXTROSE 5% 100 ML IV SCH (11:38)
--- NOTE | 2022-08-08 12:23 | Hospitalist Progress Note ---
Date of Service August 08, 2022 Assessment & Plan (1) Multifocal pneumonia: (2) Acute respiratory failure with hypoxia: Plan: Patient reported symptoms started after visiting grandchild mid June with cough, SOB, dizziness, occasional low BP, subjective fever and chills Was recently admitted at [facility] and managed for pneumonia and discharged on azithromycin and steroid. However, presented here due to worsening symptoms. CTA chest did not show PE but noted multifocal pneumonia, hepatomegaly. Had leukocytosis of 15 on presentation Patient did meet SIRS criteria with leukocytosis and RR >20. Hence Sepsis due to multifocal pneumonia Lyme test is + for IgM Ab. others pending Blood cultures negative so far Will continue zosyn and doxycycline for now Reported leg edema was in the past few days from recent stay at [place]. May be related to IVF during that hospital stay TTE noted EF 65-70%, mod conc LVH, no significant valvular disease, normal RV size and function, normal atrial Leg edema has resolved Continue antitussives Wean oxygen as tolerated. Will stop steroid for now (3) Hypertension: Plan: SBP running 90-100s. Hold all antihypertensives for now Continue home lexapro Continue omeprazole DVT ppx- lovenox I spent a total of 50 minutes coordinating, documenting and providing care for this patient excluding time spent in performance of separately billed services Admission and Anticipated Discharge Date Admission Date: August 06, 2022 Subjective Patient seen and examined Reports significant improvement Reports cough and shortness of breath are improving Denied dizziness today No fever today. Denied chills, nausea, vomiting, abd pain, diarrhea, dysuria, freq, urgency Leg swelling is resolved Physical Exam Constitutional: + well hydrated and + obese; no acute distress Eyes: PERRL, conjunctivae normal, anicteric sclerae ENMT: external ear and nose normal, oropharynx normal Respiratory: Not in resp distress. On nasal cannula Coarse breath sounds with scattered crackles Cardiovascular: Rate/Rhythm: regular rate and regular rhythm S1 S2 Gastrointestinal (Abdomen): normal bowel sounds, soft, nontender, no hepatosplenomegaly Musculoskeletal: No pedal edema Neurologic: PERRL, EOMI, accommodation nl, no face palsy, no dysarthria Psychiatric: A+Ox3, euthymic affect Results & Data Results & Data Vital Signs (Past 12 Hours) Vital Signs Temp Pulse Pulse Resp BP BP Pulse Ox 08/08/22 10:52 36.8 C 74 20 102/59 L 94 08/08/22 08:00 08/08/22 08:03 36.7 C 94 H 20 126/75 93 08/08/22 06:52 86 16 97 08/08/22 04:00 36.4 C L 63 18 103/66 96 O2 Del Method O2 Flow Rate 08/08/22 10:52 Room Air 08/08/22 08:00 Nasal Cannula 1 08/08/22 08:03 Nasal Cannula 1.0 08/08/22 06:52 Nasal Cannula 2 08/08/22 04:00 Nasal Cannula 2 Laboratory Results Abnormal lab results 08/08/22 08/08/22 Range/Units 08:09 08:09 RBC 3.28 L (4.20-5.40) M/uL Hgb 10.9 L (12.0-16.0) g/dl Hct 31.2 L (37.0-47.0) % Chloride 111 H (98-107) mmol/L Glucose 126 H (70-99(Fasting)) mg/dl Calcium 8.3 L (8.6-10.3) mg/dl AST 40 H (13-39) U/L Total Protein 5.9 L (6.0-8.3) gm/dl Albumin 2.7 L (3.4-5.0) gm/dl Albumin/Globulin Ratio 0.8 L (0.9-2)
[2022-08-08] MEDS ORDERED: LEVALBUTEROL 1.25 MG/3 ML NEB NEB PRN (13:18)
[2022-08-08] MEDS ORDERED: IPRATROPIUM BROMIDE NEB SOLN 0.02% 2.5 ML VIAL INH PRN (13:19)
[2022-08-09] MEDS: PIPERACILLIN/TAZOBACTAM 4.5 GM in DEXTROSE 5% 100 ML IV SCH ×3 (00:13→17:00)
[2022-08-09] MEDS: DOXYCYCLINE HYCLATE 100 MG in DEXTROSE 5% 100 ML IV SCH ×2 (00:13→11:13)
[2022-08-09] MEDS: ACETAMINOPHEN 325 MG TAB PO PRN ×3 (03:30→19:24)
--- NOTE | 2022-08-09 06:18 | Electrocardiogram Report ---
Test Reason : Blood Pressure : / mmHG Vent. Rate : 091 BPM Atrial Rate : 091 BPM P-R Int : 156 ms QRS Dur : 074 ms QT Int : 336 ms P-R-T Axes : 016 014 049 degrees QTc Int : 413 ms Normal sinus rhythm Low voltage QRS Septal infarct , age undetermined Abnormal ECG When compared with ECG of 06-SEP-2018 10:39, QT has shortened Confirmed by Jabier Lawson ([id number]) on 08/09/2022 6:17:38 AM Referred By: REFERRED SELF Confirmed By:Jabier Lawson
--- NOTE | 2022-08-09 06:37 | Electrocardiogram Report ---
Test Reason : Blood Pressure : / mmHG Vent. Rate : 064 BPM Atrial Rate : 064 BPM P-R Int : 180 ms QRS Dur : 088 ms QT Int : 438 ms P-R-T Axes : 049 050 051 degrees QTc Int : 451 ms Normal sinus rhythm Normal ECG When compared with ECG of 06-AUG-2022 17:54, Nonspecific T wave abnormality no longer evident in Anterior leads Confirmed by Jabier Lawson ([id number]) on 08/09/2022 6:36:41 AM Referred By: REFERRED SELF Confirmed By:Jabier Lawson
[2022-08-09 07:53] LABS: Hematocrit (blood only) 29.9 % (37.0-47.0); Hemoglobin 10.2 g/dl (12.0-16.0); Mean Corpuscular Hemoglobin 33.2 pg (25.0-34.0); Mean Corpuscular Hgb Conc 34.1 g/dL (32.0-36.0); Mean Corpuscular Volume 97.4 fL (80.0-100.0); Mean Platelet Volume 9.5 fL (9.4-12.4); Platelet Count 246 K/uL (130-400); RDW Coefficient of Variation 13.7 % (11.5-14.5); RDW Standard Deviation 48.4 fL (36.4-46.3); Red Blood Count 3.07 M/uL (4.20-5.40); White Blood Count 6.74 K/ul (4.8-10.8)
[2022-08-09 08:08] LABS: BUN Creatinine Ratio 14.1 (10-20); Calcium 7.9 mg/dl (8.6-10.3); Creatinine Clr Calc Pharmacy 96.7 ml/min; Est GFR (African American) 103.5 ml/min; Est GFR (Non-African American) 89.3 ml/min; Magnesium 1.6 mg/dl (1.7-2.4); Phosphorus 3.1 mg/dl (2.5-4.9); Potassium 3.4 mmol/L (3.5-5.1)
[2022-08-09] MEDS: ESCITALOPRAM OXALATE 10 MG TAB PO SCH (09:13)
[2022-08-09] MEDS: FLUTICASONE FUROATE 100MCG 14 PUFFS/INHALER INH SCH (09:13)
[2022-08-09] MEDS: UMECLIDINIUM/VILANTEROL 62.5/25MCG 7 PUFFS/INHALER INH SCH (09:13)
[2022-08-09] MEDS: guaiFENesin 600 MG TABCR PO SCH ×2 (09:14→20:34)
[2022-08-09] MEDS: ENOXAPARIN INJ 40 MG/0.4 ML SYR SQ SCH (09:14)
[2022-08-09] MEDS: PANTOprazole 40 MG TAB PO SCH ×2 (10:04→20:34)
--- NOTE | 2022-08-09 10:37 | Hospitalist Progress Note ---
Date of Service August 09, 2022 Assessment & Plan (1) Multifocal pneumonia: (2) Acute respiratory failure with hypoxia: Plan: Patient reported symptoms started after visiting grandchild mid June with cough, SOB, dizziness, occasional low BP, subjective fever and chills Was recently admitted at [facility] and managed for pneumonia and discharged on azithromycin and steroid. However, presented here due to worsening symptoms. CTA chest did not show PE but noted multifocal pneumonia, hepatomegaly. Had leukocytosis of 15 on presentation Patient did meet SIRS criteria with leukocytosis and RR >20. Hence Sepsis due to multifocal pneumonia Lyme test is + for IgM Ab. others pending Blood cultures negative so far Leukocytosis resolved.Had fever today Will continue zosyn and doxycycline for now Reported leg edema was in the past few days from recent stay at [place]. May be related to IVF during that hospital stay TTE noted EF 65-70%, mod conc LVH, no significant valvular disease, normal RV size and function, normal atrial Continue antitussives Wean oxygen as tolerated. (3) Hypertension: Plan: Continue to hold antihypertensives for now Continue home lexapro Continue omeprazole Replete hypokalemia and hypomagnesemia DVT ppx- lovenox I spent a total of 45 minutes coordinating, documenting and providing care for this patient excluding time spent in performance of separately billed services Admission and Anticipated Discharge Date Admission Date: August 06, 2022 Subjective Patient seen and examined Had fever overnight around 3am Stated she had felt more generalized weakness since Reports cough continues to improve, associated with chest/abd pain only with coughing episodes Reports shortness of breath only with exertion Denied dizziness today Denied chills, nausea, vomiting, abd pain, diarrhea, dysuria, freq, urgency Physical Exam Constitutional: + well hydrated and + obese; no acute distress Eyes: PERRL, conjunctivae normal, anicteric sclerae ENMT: external ear and nose normal, oropharynx normal Respiratory: On nasal cannula, +coarse crackles Cardiovascular: Rate/Rhythm: regular rate and regular rhythm S1 S2 Gastrointestinal (Abdomen): normal bowel sounds, soft, nontender, no hepatosplenomegaly Musculoskeletal: no cyanosis or clubbing, extremities motor strength 5/5 Neurologic: PERRL, EOMI, accommodation nl, no face palsy, no dysarthria Psychiatric: A+Ox3, euthymic affect Results & Data Results & Data Vital Signs (Past 12 Hours) Vital Signs Temp Pulse Pulse Resp BP Pulse Ox O2 Del Method 08/09/22 08:45 37.1 C 81 16 115/65 96 Nasal Cannula 08/09/22 06:01 75 08/09/22 03:28 38.7 C H 90 22 131/72 94 Nasal Cannula 08/09/22 00:25 78 20 92 Room Air 08/08/22 23:01 36.9 C 73 20 129/80 93 Room Air O2 Flow Rate 08/09/22 08:45 2.0 08/09/22 06:01 08/09/22 03:28 2 08/09/22 00:25 08/08/22 23:01 Laboratory Results Abnormal lab results 08/09/22 08/09/22 Range/Units 07:36 07:36 RBC 3.07 L (4.20-5.40) M/uL Hgb 10.2 L (12.0-16.0) g/dl Hct 29.9 L (37.0-47.0) % RDW Std Deviation 48.4 H (36.4-46.3) fL Potassium 3.4 L (3.5-5.1) mmol/L Chloride 109 H (98-107) mmol/L Calcium 7.9 L (8.6-10.3) mg/dl Magnesium 1.6 L (1.7-2.4) mg/dl
[2022-08-09] MEDS ORDERED: MAGNESIUM SULFATE / D5W 1 GM/100 ML BAG IV ONE (14:07)
[2022-08-09] MEDS ORDERED: POTASSIUM CHLORIDE CRTAB 20 MEQ TABCR PO STA (14:07)
[2022-08-09] MEDS: MELATONIN 3 MG TAB PO PRN (20:34)
[2022-08-10] MEDS: PIPERACILLIN/TAZOBACTAM 4.5 GM in DEXTROSE 5% 100 ML IV SCH ×4 (01:28→23:36)
[2022-08-10] MEDS: DOXYCYCLINE HYCLATE 100 MG in DEXTROSE 5% 100 ML IV SCH ×3 (01:29→23:37)
[2022-08-10] MEDS: ACETAMINOPHEN 325 MG TAB PO PRN ×2 (03:14→16:35)
--- NOTE | 2022-08-10 05:54 | Electrocardiogram Report ---
Test Reason : Blood Pressure : / mmHG Vent. Rate : 086 BPM Atrial Rate : 086 BPM P-R Int : 190 ms QRS Dur : 082 ms QT Int : 368 ms P-R-T Axes : 055 049 032 degrees QTc Int : 440 ms Normal sinus rhythm Normal ECG When compared with ECG of 07-AUG-2022 04:44, No significant change Confirmed by Jabier Lawson ([id number]) on 08/10/2022 5:53:52 AM Referred By: REFERRED SELF Confirmed By:Jabier Lawson
[2022-08-10 07:18] LABS: Hematocrit (blood only) 31.4 % (37.0-47.0); Hemoglobin 10.6 g/dl (12.0-16.0); Mean Corpuscular Hemoglobin 32.6 pg (25.0-34.0); Mean Corpuscular Hgb Conc 33.8 g/dL (32.0-36.0); Mean Corpuscular Volume 96.6 fL (80.0-100.0); Mean Platelet Volume 9.2 fL (9.4-12.4); Platelet Count 217 K/uL (130-400); RDW Coefficient of Variation 13.7 % (11.5-14.5); RDW Standard Deviation 48.8 fL (36.4-46.3); Red Blood Count 3.25 M/uL (4.20-5.40); White Blood Count 8.42 K/ul (4.8-10.8)
[2022-08-10 07:38] LABS: BUN Creatinine Ratio 12.2 (10-20); Calcium 7.9 mg/dl (8.6-10.3); Creatinine Clr Calc Pharmacy 102.4 ml/min; Est GFR (African American) 110.3 ml/min; Est GFR (Non-African American) 95.1 ml/min; Magnesium 1.7 mg/dl (1.7-2.4); Potassium 3.4 mmol/L (3.5-5.1)
[2022-08-10] MEDS: FLUTICASONE FUROATE 100MCG 14 PUFFS/INHALER INH SCH (07:46)
[2022-08-10] MEDS: UMECLIDINIUM/VILANTEROL 62.5/25MCG 7 PUFFS/INHALER INH SCH (07:47)
[2022-08-10] MEDS: guaiFENesin 600 MG TABCR PO SCH ×2 (07:47→20:20)
[2022-08-10] MEDS: ESCITALOPRAM OXALATE 10 MG TAB PO SCH (07:47)
[2022-08-10] MEDS: ENOXAPARIN INJ 40 MG/0.4 ML SYR SQ SCH (07:47)
[2022-08-10] MEDS: PANTOprazole 40 MG TAB PO SCH ×2 (07:47→20:21)
[2022-08-10] MEDS ORDERED: POTASSIUM CHLORIDE CRTAB 20 MEQ TABCR PO STA (08:13)
--- NOTE | 2022-08-10 10:26 | Hospitalist Progress Note ---
Date of Service August 10, 2022 Assessment & Plan (1) Multifocal pneumonia: (2) Acute respiratory failure with hypoxia: Plan: Patient reported symptoms started after visiting grandchild mid June with cough, SOB, dizziness, occasional low BP, subjective fever and chills Was recently admitted at [facility] and managed for pneumonia and discharged on azithromycin and steroid. However, presented here due to worsening symptoms. CTA chest did not show PE but noted multifocal pneumonia, hepatomegaly. Had leukocytosis of 15 on presentation Patient did meet SIRS criteria with leukocytosis and RR >20. Hence Sepsis due to multifocal pneumonia Lyme test is + for IgM Ab. Others pending Blood cultures negative so far Leukocytosis resolved. Currently on zosyn and doxycycline Continues to have intermittent fever. Pulm consult appreciated. Discussed with Pulm who recommends prednisone 40mg daily, addition of azithromycin. Patient will need repeat CT chest in 8 weeks and outpatient follow up TTE noted EF 65-70%, mod conc LVH, no significant valvular disease, normal RV size and function, normal atrial Continue antitussives Wean oxygen as tolerated. Will need 2 step prior to dc (3) Hypertension: Plan: Continue to hold antihypertensives for now. If BP trend continues, will keep holding off on dc Continue home lexapro Continue omeprazole Replete hypokalemia DVT ppx- lovenox I spent a total of 45 minutes coordinating, documenting and providing care for this patient excluding time spent in performance of separately billed services Admission and Anticipated Discharge Date Admission Date: August 06, 2022 Subjective Patient seen and examined Reports improvement in cough and shortness of breath Reports dizziness and myalgia has resolved Currently on 2l/min NC No chills. Had fever this morning. Denied nausea, vomiting. Reports weakness is improved Physical Exam Constitutional: + well hydrated and + obese; no acute distress Eyes: PERRL, conjunctivae normal, anicteric sclerae ENMT: external ear and nose normal, oropharynx normal Respiratory: +cough, on nasal cannula, no crackles today Cardiovascular: Rate/Rhythm: regular rate and regular rhythm S1 S2 Gastrointestinal (Abdomen): normal bowel sounds, soft, nontender, no hepatosplenomegaly Musculoskeletal: no cyanosis or clubbing, extremities motor strength 5/5 Neurologic: PERRL, EOMI, accommodation nl, no face palsy, no dysarthria Psychiatric: A+Ox3, euthymic affect Results & Data Results & Data Vital Signs (Past 12 Hours) Vital Signs Temp Pulse Pulse Pulse Resp BP Pulse Ox 08/10/22 08:45 36.7 C 81 81 18 92/63 L 98 08/10/22 06:05 78 08/10/22 03:19 38.1 C H 79 18 103/64 94 08/09/22 23:26 37.1 C 74 20 96/60 L 92 O2 Del Method O2 Flow Rate 08/10/22 08:45 Nasal Cannula 2 08/10/22 06:05 08/10/22 03:19 Nasal Cannula 2 08/09/22 23:26 Nasal Cannula 2 Laboratory Results Abnormal lab results 08/10/22 08/10/22 Range/Units 07:01 07:01 RBC 3.25 L (4.20-5.40) M/uL Hgb 10.6 L (12.0-16.0) g/dl Hct 31.4 L (37.0-47.0) % RDW Std Deviation 48.8 H (36.4-46.3) fL MPV 9.2 L (9.4-12.4) fL Potassium 3.4 L (3.5-5.1) mmol/L Calcium 7.9 L (8.6-10.3) mg/dl
[2022-08-10] MEDS ORDERED: AZITHROMYCIN 250 MG in PEDIATRIC DILUENT 0 ML IV SCH (11:45)
[2022-08-10] MEDS ORDERED: AZITHROMYCIN 500 MG in DEXTROSE 5% 250 ML IV ONE (12:00)
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
[2022-08-10] MEDS: predniSONE 20 MG TAB PO SCH (15:00)
[2022-08-10] MEDS: MELATONIN 3 MG TAB PO PRN (21:33)
[2022-08-11 07:17] LABS: Hematocrit (blood only) 29.5 % (37.0-47.0); Hemoglobin 10.2 g/dl (12.0-16.0); Mean Corpuscular Hemoglobin 32.9 pg (25.0-34.0); Mean Corpuscular Hgb Conc 34.6 g/dL (32.0-36.0); Mean Corpuscular Volume 95.2 fL (80.0-100.0); Mean Platelet Volume 9.4 fL (9.4-12.4); Platelet Count 197 K/uL (130-400); RDW Coefficient of Variation 13.5 % (11.5-14.5); RDW Standard Deviation 46.3 fL (36.4-46.3); White Blood Count 8.32 K/ul (4.8-10.8)
[2022-08-11 07:54] LABS: BUN Creatinine Ratio 14.8 (10-20); Calcium 8.2 mg/dl (8.6-10.3); Creatinine Clr Calc Pharmacy 124.2 ml/min; Est GFR (African American) 123.4 ml/min; Est GFR (Non-African American) 106.5 ml/min; Magnesium 1.9 mg/dl (1.7-2.4); Phosphorus 3.3 mg/dl (2.5-4.9); Potassium 4.1 mmol/L (3.5-5.1)
[2022-08-11] MEDS: ESCITALOPRAM OXALATE 10 MG TAB PO SCH (08:22)
[2022-08-11] MEDS: predniSONE 20 MG TAB PO SCH (08:22)
[2022-08-11] MEDS: PANTOprazole 40 MG TAB PO SCH ×2 (08:22→20:18)
[2022-08-11] MEDS: UMECLIDINIUM/VILANTEROL 62.5/25MCG 7 PUFFS/INHALER INH SCH (08:22)
[2022-08-11] MEDS: FLUTICASONE FUROATE 100MCG 14 PUFFS/INHALER INH SCH (08:22)
[2022-08-11] MEDS: guaiFENesin 600 MG TABCR PO SCH ×2 (08:22→20:19)
[2022-08-11] MEDS: ENOXAPARIN INJ 40 MG/0.4 ML SYR SQ SCH (08:23)
[2022-08-11] MEDS: PIPERACILLIN/TAZOBACTAM 4.5 GM in DEXTROSE 5% 100 ML IV SCH ×2 (08:48→16:43)
--- NOTE | 2022-08-11 09:10 | Pulmonology Progress Note ---
Date of Service August 11, 2022 Assessment & Plan (1) Idiopathic interstitial pneumonia: (2) Hypoxia: (3) Bronchitis: Plan Impression: 51-year-old female with a history who stopped smoking about 2 weeks ago status post recent admission to [facility] for hypoxemia and multi focal infiltrates treated with steroids and antibiotics. She presented to our institution after tapering the steroids with recurrence of her symptoms and had a CT scan showing patchy bilateral infiltrates with a negative procalcitonin. She has been placed empirically on steroids as well as antibiotics and is clinically improved. Recommendations: 1. Abnormal CT scan: Differential is broad and as noted previously. Bacterial infectious etiologies appear to be less likely. Await Legionella urinary antigen. Given that she is clinically improved, would favor continuing the course. If she were to clinically worsen or fail to improve, would have a low threshold for proceeding with bronchoscopy with BAL and potential transbronchial biopsies. She does not have systemic symptoms concerning for other systemic conditions such as sarcoid, lupus, or scleroderma. These abnormalities could be consistent with smoking-related lung disease (RB ILD/DIP) however the fact that she quit smoking about 2 weeks ago would argue against that. Continue steroids and antibiotics for now. 2. Hypoxemic respiratory failure: Clinically improved. Continue to wean oxygen as tolerated. 3. I requested that the primary service obtain the images from the patient's prior admission and have them loaded into our system for comparison. She will require a follow-up CT scan in 4 to 6 weeks to ensure these abnormalities are resolving. 4. Anemia: Management per primary service. No evidence of acute blood loss. Unclear if hemolytic anemia may be present. Urine bilirubin negative. We will continue to follow with you. Patient may be eligible for discharge once were sure that she is trending in an appropriate clinical direction and we have been able to review prior films in arrange appropriate outpatient follow-up. The above recommendations and plan were discussed with the patient in detail. Questions were answered to the best my ability. She expressed understanding and is in agreement with the plan as outlined Admission and Anticipated Discharge Date Admission Date: August 06, 2022 Subjective Patient seen and examined. EMR reviewed. Discussed with off going budget controller. The patient reports that she feels 100% better this morning. She is coughing and occasionally producing some scant clear phlegm. She has not had any hemoptysis. No chest pain. Her oxygen requirement is stable to decreasing. She denies fevers chills night sweats or other constitutional symptoms overnight. Additional history obtained from the patient. She quit smoking about 2 weeks ago. She is never used THC products. No history of vaping or e-cigarette use. No other occupational or environmental exposures. The patient denies any Review of Systems Review of Systems: All systems reviewed & are unremarkable except as noted in Subjective Physical Exam Constitutional: WD/WN, vitals as above Neck: trachea midline, no thyromegaly Respiratory: + cough; no respiratory distress, no labored breathing and not tachypneic Auscultation: + rhonchi Cardiovascular: RRR, no murmur, no edema Gastrointestinal (Abdomen): normal bowel sounds, soft, nontender, no hepatosplenomegaly Musculoskeletal: Extremities: extremities normal to inspection Skin: no rashes, warm and dry Neurologic: Nonfocal exam Lymphatic: no cervical lymphadenopathy Results & Data Results & Data Vital Signs (Past 12 Hours) Vital Signs Temp Pulse Pulse Resp BP Pulse Ox O2 Del Method 08/11/22 07:54 36.8 C 83 18 106/68 92 Nasal Cannula 08/11/22 03:00 36.5 C 75 21 94/53 L 91 Nasal Cannula 08/10/22 23:00 36.6 C 76 17 90/60 L 93 Nasal Cannula 08/10/22 22:01 68 O2 Flow Rate 08/11/22 07:54 2 08/11/22 03:00 2 08/10/22 23:00 2 08/10/22 22:01 Critical Care Results & Data Vital Signs (Past 12 Hours) Vital Signs Temp Pulse Pulse Resp BP Pulse Ox O2 Del Method 08/11/22 07:54 36.8 C 83 18 106/68 92 Nasal Cannula 08/11/22 03:00 36.5 C 75 21 94/53 L 91 Nasal Cannula 08/10/22 23:00 36.6 C 76 17 90/60 L 93 Nasal Cannula 08/10/22 22:01 68 O2 Flow Rate 08/11/22 07:54 2 08/11/22 03:00 2 08/10/22 23:00 2 08/10/22 22:01 Lab & Micro Results (Past 24 Hours) RBC 3.10 M/uL (4.20-5.40) L 08/11/22 WBC 8.32 K/ul (4.8-10.8) 08/11/22 Hgb 10.2 g/dl (12.0-16.0) L 08/11/22 Hct 29.5 % (37.0-47.0) L 08/11/22 MCV 95.2 fL (80.0-100.0) 08/11/22 MCH 32.9 pg (25.0-34.0) 08/11/22 MCHC 34.6 g/dL (32.0-36.0) 08/11/22 RDW Standard Deviation 46.3 fL (36.4-46.3) 08/11/22 RDW Coefficient of Variation 13.5 % (11.5-14.5) 08/11/22 Plt Count 197 K/uL (130-400) 08/11/22 MPV 9.4 fL (9.4-12.4) 08/11/22 Na 138 mmol/L (136-145) 08/11/22 K 4.1 mmol/L (3.5-5.1) 08/11/22 Cl 108 mmol/L (98-107) H 08/11/22 CO2 27 mmol/L (21-32) 08/11/22 Anion Gap 3 (3-11) 08/11/22 BUN 9 mg/dl (6-23) 08/11/22 Creatinine 0.61 mg/dl (0.6-1.2) 08/11/22 Estimated GFR ( Amer) 123.4 ml/min 08/11/22 Estimated GFR (Non-Af Amer) 106.5 ml/min 08/11/22 BUN/Creatinine Ratio 14.8 (10-20) 08/11/22 Glu 104 mg/dl (70-99(Fasting)) H 08/11/22 Ca 8.2 mg/dl (8.6-10.3) L 08/11/22 Phosphorus Level 3.3 mg/dl (2.5-4.9) 08/11/22 Mg 1.9 mg/dl (1.7-2.4) 08/11/22 06:58 Calcium Level 8.2 mg/dl (8.6-10.3) L 08/11/22 06:58 Microbiology 08/09/22 19:58 Aerobic Blood Culture - Preliminary Blood No growth in Aerobic bottle after 24 hours. Anaerobic Blood Culture - Preliminary No growth in Anaerobic bottle after 24 hours. 08/09/22 19:58 Aerobic Blood Culture - Preliminary Blood No growth in Aerobic bottle after 24 hours. Anaerobic Blood Culture - Preliminary No growth in Anaerobic bottle after 24 hours. I & O Totals 24 Hours 08/10/22 08/11/22 08/12/22 06:59 06:59 06:59 Intake Total 1190 / 1190 1255 / 1255 Output Total 350 / 350 Balance 1190 / 1190 905 / 905 Cumulative 08/06/22 17:40 thru 08/11/22 06:00 Intake Total 96589 Output Total 1150 Balance 9993 RT Ventilator Mngmt (Last Documented) Ventilator Ordered Settings Respiratory Rate 18 08/11/22 07:54 Fraction of Inspired Oxygen 28 08/10/22 19:31 Ventilator - PT Measurements Respiratory Rate 18 PG Care Time/CCT Total # of Minutes Spent Total Time Spent with Patient: Total time spent is greater than 50% in coordination of care (as documented) at patient's floor/unit and/or counseling patient: Coding Level of Care Code 01235 SUB INP/OBS CARE 2/35MIN Diagnoses Idiopathic interstitial pneumonia J84.111 Hypoxia R09.02 Bronchitis J40
[2022-08-11] MEDS ORDERED: AZITHROMYCIN 250 MG in DEXTROSE 5% 250 ML IV SCH (12:00)
[2022-08-11] MEDS: DOXYCYCLINE HYCLATE 100 MG in DEXTROSE 5% 100 ML IV SCH ×2 (12:22→23:22)
--- NOTE | 2022-08-11 13:10 | Hospitalist Progress Note ---
Date of Service August 11, 2022 Assessment & Plan (1) Multifocal pneumonia: (2) Acute respiratory failure with hypoxia: Plan: Patient reported symptoms started after visiting grandchild mid June with cough, SOB, dizziness, occasional low BP, subjective fever and chills Was recently admitted at [facility] and managed for pneumonia and discharged on azithromycin and steroid. However, presented here due to worsening symptoms. CTA chest did not show PE but noted multifocal pneumonia, hepatomegaly. Had leukocytosis of 15 on presentation Patient did meet SIRS criteria with leukocytosis and RR >20. Hence Sepsis due to multifocal pneumonia Lyme test is + for IgM Ab. Others negative Blood cultures and repeat cultures negative so far Leukocytosis resolved. Currently on zosyn, doxycycline and azithromycin Continues to have intermittent fever. Gal zepeda noted I called [facility] and they said they will push patient's recent CTs on 07/30-07/31/22 to our system as recommended by gal Continue prednisone 40mg daily Patient will need repeat CT chest in 8 weeks and outpatient follow up TTE noted EF 65-70%, mod conc LVH, no significant valvular disease, normal RV size and function, normal atrial Continue antitussives 2 step showed no oxygen requirement at rest and 3l/min with activity (3) Hypertension: Plan: Continue to hold antihypertensives for now. If BP trend continues, will keep holding off on dc Continue home lexapro Continue omeprazole DVT ppx- lovenox I spent a total of 40 minutes coordinating, documenting and providing care for this patient excluding time spent in performance of separately billed services Admission and Anticipated Discharge Date Admission Date: August 06, 2022 Subjective Patient seen and examined Reports cough Reports shortness of breath with activity 2 step today noted no oxygen need at rest but required 3l/min with activity Denied any other symptoms at this time. Had fever yesterday afternoon. Physical Exam Constitutional: + well hydrated and + obese; no acute distress Eyes: PERRL, conjunctivae normal, anicteric sclerae ENMT: external ear and nose normal, oropharynx normal Respiratory: +Cough, +expiratory rhonchi. Not in resp distress, on room air Cardiovascular: Rate/Rhythm: regular rate and regular rhythm S1 S2 Gastrointestinal (Abdomen): normal bowel sounds, soft, nontender, no hepa tosplenomegaly Musculoskeletal: no cyanosis or clubbing, extremities motor strength 5/5 Neurologic: PERRL, EOMI, accommodation nl, no face palsy, no dysarthria Psychiatric: A+Ox3, euthymic affect Results & Data Results & Data Vital Signs (Past 12 Hours) Vital Signs Temp Pulse Pulse Pulse Pulse Pulse Pulse 08/11/22 12:06 36.7 C 83 08/11/22 11:06 59 L 08/11/22 11:02 08/11/22 09:12 80 89 78 83 08/11/22 07:54 36.8 C 83 08/11/22 03:00 36.5 C 75 Pulse Resp Resp Resp Resp Resp Resp 08/11/22 12:06 18 08/11/22 11:06 08/11/22 11:02 08/11/22 09:12 79 27 H 25 H 22 27 H 24 08/11/22 07:54 18 08/11/22 03:00 21 BP Pulse Ox Pulse Ox Pulse Ox Pulse Ox Pulse Ox Pulse Ox 08/11/22 12:06 84/59 L 92 08/11/22 11:06 08/11/22 11:02 08/11/22 09:12 85 L 86 L 91 83 L 91 08/11/22 07:54 106/68 92 08/11/22 03:00 94/53 L 91 O2 Del Method O2 Flow Rate O2 Flow Rate O2 Flow Rate O2 Flow Rate 08/11/22 12:06 Room Air 08/11/22 11:06 08/11/22 11:02 Nasal Cannula 1 08/11/22 09:12 1 2 3 08/11/22 07:54 Nasal Cannula 2 08/11/22 03:00 Nasal Cannula 2
[2022-08-11] MEDS: MELATONIN 3 MG TAB PO PRN (20:18)
[2022-08-11 23:13] LABS: 18KDIGG Band NON-REACTIVE; 23KDIGG Band NON-REACTIVE; 23KDIGM Band REACTIVE; 28KDIGG Band NON-REACTIVE; 30KDIGG Band NON-REACTIVE; 39KDIGG Band NON-REACTIVE; 39KDIGM Band NON-REACTIVE; 41KDIGG Band NON-REACTIVE; 41KDIGM Band NON-REACTIVE; 45KDIGG Band NON-REACTIVE; 58KDIGG Band NON-REACTIVE; 66KDIGG Band NON-REACTIVE; 93KDIGG Band NON-REACTIVE; Lyme Antibodies, WB IgG NEGATIVE (NEGATIVE); Lyme Antibodies, WB IgM NEGATIVE (NEGATIVE)
[2022-08-12] MEDS ORDERED: AMOXICILLIN/CLAVULANATE 875 MG TAB PO SCH (08:00)
[2022-08-12] MEDS: predniSONE 20 MG TAB PO SCH (08:06)
[2022-08-12] MEDS: PANTOprazole 40 MG TAB PO SCH (08:07)
[2022-08-12] MEDS: ESCITALOPRAM OXALATE 10 MG TAB PO SCH (08:07)
[2022-08-12] MEDS: guaiFENesin 600 MG TABCR PO SCH (08:07)
[2022-08-12] MEDS: UMECLIDINIUM/VILANTEROL 62.5/25MCG 7 PUFFS/INHALER INH SCH (08:07)
[2022-08-12] MEDS: FLUTICASONE FUROATE 100MCG 14 PUFFS/INHALER INH SCH (08:08)
--- NOTE | 2022-08-12 08:28 | Pulmonology Progress Note ---
Date of Service August 12, 2022 Assessment & Plan (1) Idiopathic interstitial pneumonia: (2) Hypoxia: (3) Bronchitis: Plan Impression: 51-year-old female with a history who stopped smoking about 2 weeks ago status post recent admission to [facility] for hypoxemia and multi focal infiltrates treated with steroids and antibiotics. She presented to our institution after tapering the steroids with recurrence of her symptoms and had a CT scan showing progression of the bilateral infiltrates with a negative procalcitonin. She has been placed empirically on steroids as well as antibiotics and is clinically improved. Recommendations: 1. Abnormal CT scan: Differential is broad and as noted previously. Bacterial infectious etiologies appear to be less likely. Await Legionella urinary antigen. Given that she is clinically improved, would favor continuing the course. I long discussion with the patient and advised her that at this point time we are treating her empirically for both infectious and inflammatory etiologies. There is some diagnostic uncertainty proceeding with this course and a definitive diagnosis may require bronchoscopy with BAL and transbronchial biopsies. The patient would like to pursue a conservative approach given her clinical improvement. Seems reasonable to continue her on prednisone at 40 mg a day until we get a follow-up CT scan in 3 to [address] her on PJP prophylaxis with Bactrim 1 double strength tablet every Thursday and Thursday as well. If the infiltrates fail to clear where the patient has recurren ce of symptoms would have a low threshold for proceeding with invasive diagnostics. Okay to complete 5-day course of Augmentin and azithromycin 2. Hypoxemic respiratory failure: Clinically improved. Continue to wean oxygen as tolerated. May need supplemental oxygen at home 3. Anemia: Management per primary service. No evidence of acute blood loss. Unclear if hemolytic anemia may be present. Urine bilirubin negative. If the patient feels well enough, she can be dismissed from the hospital with outpatient pulmonary follow-up with a follow-up CT scan in 3 to 4 weeks on medications as noted above. The above recommendations and plan were discussed with the patient in detail. Questions were answered to the best my ability. She expressed understanding and is in agreement with the plan as outlined Admission and Anticipated Discharge Date Admission Date: August 06, 2022 Subjective Patient seen and examined. EMR reviewed. The patient states she is coughing and expectorating more phlegm. She continues to state that she feels much better than previously. She was ambulated and did need some supplemental oxygen yesterday. It was also put on at night while she was sleeping. She denies chest pain or palpitations. No fevers chills or night sweats. Review of Systems Review of Systems: All systems reviewed & are unremarkable except as noted in Subjective Physical Exam Constitutional: WD/WN, vitals as above Neck: trachea midline, no thyromegaly Respiratory: + cough; no respiratory distress, no labored breathing and not tachypneic Auscultation: + rhonchi Cardiovascular: RRR, no murmur, no edema Gastrointestinal (Abdomen): normal bowel sounds, soft, nontender, no hepatosplenomegaly Musculoskeletal: Extremities: extremities normal to inspection Skin: no rashes, warm and dry Lymphatic: no cervical lymphadenopathy Results & Data Results & Data Vital Signs (Past 12 Hours) Vital Signs Temp Pulse Pulse Resp BP Pulse Ox O2 Del Method 08/12/22 03:46 36.8 C 70 16 117/73 97 Room Air 08/11/22 21:58 66 08/11/22 23:01 36.7 C 67 16 111/71 92 Room Air Laboratory Results 08/11/22 06:58 08/11/22 06:[address] here was compared to the prior CT at [place]. There has been significant progression of the bilateral parenchymal patchy airspace opacities compared to her initial CT scan. PG Care Time/CCT Total # of Minutes Spent Total Time Spent with Patient: Total time spent is greater than 50% in coordination of care (as documented) at patient's floor/unit and/or counseling patient: Coding Level of Care Code 02510 SUB INP/OBS CARE 2/35MIN Diagnoses Idiopathic interstitial pneumonia J84.111 Hypoxia R09.02 Bronchitis J40
[2022-08-12] MEDS ORDERED: DOXYCYCLINE HYCLATE 100 MG CAP PO SCH (09:00)
[2022-08-12] MEDS: ENOXAPARIN INJ 40 MG/0.4 ML SYR SQ SCH (09:19)
[2022-08-12] MEDS ORDERED: AZITHROMYCIN 250 MG TAB PO SCH (12:00)
--- NOTE | 2022-08-12 14:01 | Discharge Summary ---
Date of Service August 12, 2022 Admission HPI Per Admitting Provider 51-year-old female with past medical history significant for asthma, hypertension, GERD, anxiety and depression, who presents with shortness of breath and cough. The patient says last Thursday she was feeling not good and she was sick for a couple of weeks prior to that and last Thursday at work she checked her blood pressure, systolic blood pressure was in 60s, so she came home to go to hospital. At home, she passed out for a minute. Her brother and her friend helped her and took her to the [facility] where they found she has pneumonia and she was treated with antibiotics and steroids and says that she was discharged last Thursday on a course of azithromycin and steroids. She finished her steroids yesterday, today again she was feeling the shortness of breath and the cough was not getting better and also since last Thursday she developed lower extremity edema and today and checked her blood pressure, it was again low and that is the reason she came to the hospital here. Currently, alert and oriented, has some headache from coughing, also felt dizziness. Denies any blurred visions, no earache, no runny nose, no sore throat. Does not bring any phlegm. Has some chest discomfort. She thinks this is very mild and is more with coughing.She was 87% on room air and requiring oxygen in the ER.Says when she coughs a lot, she feels nauseous. She did not eat much for the last 2 days. No abdominal pain. She has some diarrhea. Her stools are reddish in color, but it seems it is the color of the antibiotic. She has got normal bladder movements. No hematuria, no burning micturition. Admission Exam Per Admitting Provider GENERAL: The patient is obese, not in acute distress. VITAL SIGNS: Temperature T-max 39.4, pulse 98, respiratory rate 14, blood pressure 136/82, oxygen 87% on room air, 92% on 4 liters. HEENT: Pupils equal, round, and reactive to light. Oral mucosa moist. NECK: No JVD, no neck masses. CARDIOVASCULAR: S1 and S2 heard, regular rate and rhythm. No murmur, no gallop. RESPIRATORY SYSTEM: Normal AP diameter. No accessory muscle use. Mild bilateral rhonchi. No wheezing. ABDOMEN: Soft, bowel sounds present, nontender, no distention. CENTRAL NERVOUS SYSTEM: Alert and oriented. Speech is clear. No facial droop. Obeys simple commands. Moves extremities. EXTREMITIES: Lower extremity pedal edema present, no erythema seen. Principal Diagnosis Acute respiratory failure with hypoxia Pneumonia Possible lyme infection Discharge Exam Constitutional + well hydrated and + obese; no acute distress Eyes PERRL, conjunctivae normal, anicteric sclerae ENMT external ear and nose normal, oropharynx normal Respiratory normal respiratory effort and + cough; no respiratory distress +rhonchi Cardiovascular Rate/Rhythm: regular rate and regular rhythm S1 S2 Gastrointestinal (Abdomen) normal bowel sounds, soft, nontender, no hepatosplenomegaly Musculoskeletal no cyanosis or clubbing, extremities motor strength 5/5 Neurologic PERRL, EOMI, accommodation nl, no face palsy, no dysarthria Psychiatric A+Ox3, euthymic affect Discharge Data Allergies Allergy/AdvReac Type Severity Reaction Status Date / Time No Known Allergies Allergy Unverified 09/06/18 11:54 Consultations 08/06/22 19:33 ED Decision to Admit Stat 08/10/22 08:17 Consult Pulmonology Routine Ordered Studies 08/06/22 18:12 CT angio chest PE protocol Stat 08/06/22 23:34 US venous doppler [facility] Urgent Hospital Course (1) Multifocal pneumonia: (2) Acute respiratory failure with hypoxia: Patient reported symptoms [facility] with cough, SOB, dizziness, occasional low BP, subjective fever and chills Was recently admitted at [facility] and managed for pneumonia and discharged on azithromycin and steroid. However, presented here due to worsening symptoms. CTA chest did not show PE but noted multifocal pneumonia, hepatomegaly. Had leukocytosis of 15 on presentation Patient did meet SIRS criteria with leukocytosis and RR >20. Hence Sepsis due to multifocal pneumonia Lyme test is + for IgM Ab. Others negative Blood cultures and repeat cultures negative so far Leukocytosis resolved but she continued to have intermittent fever for sometime,now resolved (last fever was 08/10/22) Patient was treated with zosyn. Also got azithromycin to cover atypicals She was also on doxycycline for possible lyme infection She was evaluated by Pulmonology who reviewed her images at [place] as well and noted CT here showed progression in comparison Differentials include bacterial and inflammatory causes Patient was discharged on augmentin and azithromycin for 2 more days to complete treatment Pulmonology also recommend discharging on prednisone 40mg daily until 3-[address] and follow up with Pulm. Patient to be on bactrim MWF for PJP prophylaxis while on prednisone. Patient also discharged on po doxycycline to complete treatment for possible lyme infection Counseled patient about discharge meds Counseled extensively about smoking cessation Continue antitussives 2 step showed no oxygen requirement at rest and 3l/min with activity (3) Hypertension: Patient had hypotensive episodes throughout stay. BP has been low to normal Continue to hold antihypertensives for now. Advised to keep a home BP log. Losartan and chlorthalidone stopped for now until follow up with PCP TTE noted EF 65-70%, mod conc LVH, no significant valvular disease, normal RV size and function, normal atrial Continue home lexapro Continue omeprazole Total Time Total Time Spent Total Time Spent (In Minutes): 45 Total Time Includes: Examination of the Patient, Discharge Planning and Medication Reconciliation Discharge Plan Discharge Items Patient Disposition: Home - Self-Care Reason For Visit: Shortness of breath Discharge Diagnosis: Acute respiratory failure with hypoxia Pneumonia Possible lyme infection Activity: Resume your previous activity Non-emergency contact: Primary Care Provider and Career Services Coordinator Call non-emergency contact if: you have any medication questions and your symptoms worsen Follow-up/Referrals: Boo Villegas MD [Physician] - 09/12/22 12:45 pm Lalo Salazar MD [Primary Care Provider] - (Date & Time 08/18/2022 11:20 AM Provider Deedee Beckett MD Department Family Medicine [facility] ) Diet: Heart Healthy Addtl Attending Provider Instructions: Mrs Fraser You came to the hospital due to worsening cough and shortness of breath after your recent treatment at [facility]. You were managed for pneumonia with antibiotics. You are being discharged on few more days of augmentin and azithromycin to complete treatment. You are being discharged on prednisone 40mg daily until follow up with Pulm and repeat CT in 3-4 weeks. Please take bactrim on thursday and fridays while you are on prednisone. Please ensure follow up with the Pulmonology. Your tests also noted possible lyme infection. You are being discharged on 4 more days of doxycycline to complete treatment. You had low blood pressure during your stay. Please stop losartan and chlorthalidone for now. Please keep a home BP log as we discussed and follow up with your Primary Doctor. Please quit smoking as we discussed. You are being discharged on 3l/min of oxygen with activity for now. It was a pleasure taking care of you. Pending Studies at Discharge: No Stand-Alone Forms: My [facility], Work/School Release, Smoking Cessation Medications and DC Order Prescriptions: New amoxicillin-pot clavulanate 875-125 mg Tablet 1 tab PO BIDM 2 Days Qty: 4 0RF azithromycin 250 mg Tablet 250 mg PO DAILY@1200 Qty: 2 0RF prednisone 20 mg Tablet 40 mg PO DAILY 28 Days Qty: 56 0RF guaifenesin [Mucinex] 600 mg Tablet Extended Release 12hr 1,200 mg PO Q12 5 Days Qty: 20 0RF doxycycline hyclate 100 mg capsule 100 mg PO BID Qty: 9 0RF sulfamethoxazole-trimethoprim [Bactrim DS] 800-160 mg tablet 1 tab PO .mowefri 28 Days Qty: 12 0RF Rx Instructions: On Thursday, Thursday and Thursday while on Prednisone Continued omeprazole 20 mg capsule,delayed release(DR/EC) 20 mg PO AMPM albuterol sulfate [Ventolin HFA] 90 mcg/actuation HFA aerosol inhaler 2 puff inhalation Q4 PRN (Reason: Wheezing) escitalopram oxalate 10 mg tablet 10 mg PO QAM fexofenadine 180 mg Tablet 180 mg PO DAILY PRN (Reason: allergies) Trelegy Ellipta 100-62.5-25 mcg blister with device 1 inh INHALATION QAM albuterol sulfate 2.5 mg /3 mL (0.083 %) solution for nebulization 2.5 mg continuous nebulization Q4 PRN (Reason: wheeze) Discontinued chlorthalidone 25 mg tablet 25 mg PO QAM losartan 100 mg tablet 100 mg PO QAM Discharge Orders: Discharge Order (Routine); Ordered 08/12/22 Ordered By: Lacie Castro Admission Data Admit Date/Time: 08/06/22 20:46 Attending Provider: Lacie Castro I. Admit Provider: Jordan Briones Primary Care Provider: Lalo Salazar Other Providers: Jordan Briones ; Boo Villegas Other Interventions: Discharge Summary Assessment (RN) Last Done: 08/12/22 14:03
== END 2022-08-12 14:24 | disposition home or self-care (01) | DRG 871 ==
LOC: ED 17:40 → 2S 20:46